=== PATIENT | female | born 1945 ===

== ENCOUNTER → 2023-11-01 13:08 | Outpatient (BNVA) | payer MEDICARE, SELFPAY | PROVIDERS: PCP Family Medicine; Visit Provider Family Medicine | DX: E11.9 Type 2 diabetes mellitus without complications (principal) | CPT/HCPCS: 80053; 80061; 82607; 83036 ==

== ENCOUNTER → 2023-11-02 13:11 | Outpatient (BNVA) | payer MEDICARE, SELFPAY | PROVIDERS: PCP Family Medicine; Visit Provider Nurse Practitioner Family | DX: I96 Gangrene, not elsewhere classified (principal); L97.512 Non-pressure chronic ulcer of other part of right foot with fat layer exposed; L97.522 Non-pressure chronic ulcer of other part of left foot with fat layer exposed | CPT/HCPCS: 11042; 99213 ==

== ENCOUNTER 2023-11-04 18:09 | Emergency (ER) | payer MEDICARE, SELFPAY ==
[2023-11-04 18:15] VITALS: BP 176/60; PULSE 63; RESP 15; O2SAT 97
[2023-11-04] MEDS: tranexamic acid 1,000 mg/10mL SDV 1000 MG IRRIGATION (19:10)
[2023-11-04] MEDS: silver nitrate applicator 2 EACH TOPICAL (19:10)
[2023-11-04] MEDS: oxyCODONE-APAP 5-325 mg Tablet 2 TAB PO (20:02)
--- NOTE | 2023-11-04 20:05 | PC.NURSE ---
Family in room with patient. Son and grandson placed pt in wheelchair before I returned to room. Family yelled out the patient was bleeding from her foot again. Entered room and pt sitting in chair with blood dripping from bandage to the floor. Gauze applied to site and pressure held. Dr Burr notified that the wound started bleeding again and family reports that it happened when they put her in the chair and actively denied hitting the foot on anything. PT put on gurney, elevated foot and dressing removed. Bleed stopped. Per Dr Burr, cleaned site with peroxide and sterile water to remove scab, applied txa to the site and let it sit for 20mins. Then applied surgifoam to site rewrapped with telfa and coban. Pt up to wheelchair and waited 10 mins to reassess the bleeding. Wound intact without bleeding. Provider aware and patient has been d/c. Family verbalized understanding and directions to keep dressing on and contact woundcare monday for appt.
[2023-11-04 20:06] VITALS: BP 148/59; RESP 18
--- NOTE | 2023-11-04 21:20 | W.ED.WOUNDLC ---
HPI - Wound/Laceration General: Chief Complaint: Wound/Laceration Stated Complaint: BLEEDING FROM RIGHT FOOT WOUND Time Seen by Provider: 11/04/23 18:13 History of Present Illness: 78-year-old female who is a paraplegic. 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 During wound change tonight, which is only her second wound change after debridement, she began to bleed. There was profuse bleeding from the wound. Pressure help stopped the bleeding, but without pressure the bleeding would not stop. EMS was called. Bleeding is controlled on arrival. She had not been infected and not on antibiotics. She is on Plavix and aspirin. Review of Systems Card: Denies: chest pain Resp: Denies: dyspnea Skin/Breast: Reports: non-healing lesions and surgical incision; Denies: rash, erythema or changes in skin color PFS ED PFSH: Medical History Neurogenic bladder Family History (Updated 11/01/23 @ 12:12 by Aniyah Holland MD) Sister Breast cancer Father Heart disease Social History Smoking and tobacco/nicotine status: former use of tobacco/nicotine Alcohol intake: never Substance/Drug Use: never Lives independently: No Household members: other Details: daughter & son-in-law Number of children: 3 Number of grandchildren: 7 Current occupational status: retired Previous occupational history: information receptionist at [employer] Claudia/Cheondoism: Sikhism Special claudia needs: No Agree to transfusion: Yes Physical Exam Const: COMMON NORMALS: no acute distress GENERAL APPEARANCE: cooperative and frail appearing; not ill appearing HENMT: COMMON NORMALS: normocephalic and atraumatic HEAD & SCALP: normocephalic and atraumatic Eye: COMMON NORMALS: Equal, round and reactive pupils present and EOMs intact bilaterally PUPIL: Yes Equal, round and reactive pupils present Neck/C-Spine: GENERAL: Yes trachea midline Chest: CHEST: Yes Symmetrical chest wall rise Resp: COMMON NORMALS: normal respiratory effort and No use of accessory muscles Cardio: COMMON NORMALS: regular rate and regular rhythm RATE: regular rate RHYTHM: regular rhythm Extremity: NARRATIVE EXTREMITY EXAM: Examination of the right lower extremity reveals a small opening over the amputation site of the great toe. There is fresh clot present at the bed of the wound. No active bleeding. Opening is approximately 1 cm. Course Vital Signs: Vital signs: Vital Signs Pulse Rate 63 11/04/23 18:15 Respiratory Rate 18 11/04/23 20:06 Blood Pressure 148/59 11/04/23 20:06 Pulse Oximetry 97 11/04/23 18:15 Oxygen Delivery Me thod Room Air 11/04/23 18:15 MDM - Wound/Laceration Medical Decision Making Wound was irrigated with saline, then TXA. Silver nitrate was used in the bed of the wound. Dressing was placed. No bleeding occurred. After getting the patient up, however, and her legs being placed down in a dependent position, she started to bleed again and soaked through her bandage. She was placed back in the bed, saline and peroxide were used to cleanse the wound to the wound bed. Bleeding stopped immediately after legs were raised to the level of the pelvis. Wound was soaked in TXA, Surgifoam was placed in the wound, with another dressing placed. The patient is sitting in dependent position without any rebleeding at this time. If she does not bleed, she will be discharged. Wound care is to be called tomorrow by the patient for close outpatient follow-up. She has a scheduled appointment on . She is to leave the dressing on until that time. No radiology studies performed this visit Discharge Plan Discharge Patient Disposition: Home Clinical Impression: Hemorrhage from wound Condition: Stable Prescriptions: New hydrocodone-acetaminophen 5-325 mg tablet 1 tab PO Q8H PRN (Reason: pain) Qty: 7 0RF No Action clopidogrel 75 mg tablet 75 mg PO DAILY atorvastatin 10 mg tablet 10 mg PO DAILY furosemide 20 mg tablet 20 mg PO DAILY metoprolol succinate 50 mg tablet extended release 24 hr 50 mg PO DAILY lisinopril 20 mg tablet 20 mg PO DAILY paroxetine HCl 40 mg tablet 40 mg PO DAILY gabapentin 100 mg capsule See Rx Instructions .ROUTE .COMPLEX Rx Instructions: 1 cap in am & 2 caps at bedtime aspirin 81 mg tablet,delayed release (DR/EC) 81 mg PO DAILY acetaminophen 500 mg tablet 500 mg PO Q6H PRN (DME) xerofoam See Rx Instructions .Route .MEDSUPPLY Qty: 10 0RF Rx Instructions: As directed cyanocobalamin (vitamin B-12) 5,000 mcg capsule 5,000 mcg PO DAILY Qty: 30 0RF Discharge Orders: Discharge ED (Routine); Ordered 11/04/23 Ordered By: Ahmet Garrett Referrals: Aniyah Holland MD [Primary Care Provider] - 4-7 days Patient Instructions: Opioid Safety, Pain Management Activity Restrictions/Additional Instructions: He experienced vascular hemorrhage from a wound. The wound bed was cauterized. Continue normal wound care as you have been instructed. Follow-up with wound care as directed. See your doctor next week. Return for hemorrhage not controlled by pressure. Return also for increased swelling, redness, streaking, pain, other concerning symptoms. Coding Level of Care Code ED Tank Charger for Janiya Browne
== END 2023-11-04 21:46 | disposition home or self-care (01) ==
PROVIDERS: Emergency Provider Emergency Medicine; PCP Family Medicine
DX: R58 Hemorrhage, not elsewhere classified (principal); L97.519 Non-pressure chronic ulcer of other part of right foot with unspecified severity; Z79.02 Long term (current) use of antithrombotics/antiplatelets; Z79.82 Long term (current) use of aspirin; G82.20 Paraplegia, unspecified; Z87.891 Personal history of nicotine dependence
CPT/HCPCS: 99283

== ENCOUNTER → 2023-11-09 11:05 | Outpatient (BNVA) | payer MEDICARE, SELFPAY | PROVIDERS: PCP Family Medicine; Visit Provider Nurse Practitioner Family | DX: T87.81 Dehiscence of amputation stump (principal); Y83.8 Other surgical procedures as the cause of abnormal reaction of the patient, or of later complication, without mention of misadventure at the time of the procedure; Z89.421 Acquired absence of other right toe(s); L89.892 Pressure ulcer of other site, stage 2; I73.9 Peripheral vascular disease, unspecified; B35.1 Tinea unguium; E11.42 Type 2 diabetes mellitus with diabetic polyneuropathy; G62.9 Polyneuropathy, unspecified | CPT/HCPCS: 11042; 11721; 99203 ==